=== PATIENT | male | born 1985 | race African-American/Black ===

== ENCOUNTER 2022-03-26 07:34 | Emergency (ER) | payer OTHER ==
[~2022-03-26] VITALS: Ht 195.6 cm; Wt 104.5 kg
[2022-03-26 08:02] VITALS: BP 137/76; TEMP 102.7
[2022-03-26 08:49] VITALS: PULSE 95
== END 2022-03-26 08:49 | disposition home or self-care (01) ==
LOC: COL.ER 07:34
DX: U07.1 COVID-19 (principal)